=== PATIENT | female | born 1955 | race Caucasian/White ===

== ENCOUNTER 2024-06-12 19:00 | Emergency (ER) | payer OTHER ==
[~2024-06-12] VITALS: Ht 170.2 cm; Wt 68.0 kg
[2024-06-12 19:02] VITALS: TEMP 36.7; O2SAT 98
[2024-06-13 01:28] VITALS: BP 151/83; PULSE 73; RESP 16
[2024-06-13] MEDS: IBUPROFEN 600MG TABLET PO ONE (01:28)
== END 2024-06-13 02:26 | disposition home or self-care (01) ==
LOC: ER 19:00
DX: S80.11XA Contusion of right lower leg, initial encounter (principal); I10 Essential (primary) hypertension; Z88.0 Allergy status to penicillin; W18.30XA Fall on same level, unspecified, initial encounter; Y93.89 Activity, other specified; Y92.89 Other specified places as the place of occurrence of the external cause; Y99.8 Other external cause status
CPT/HCPCS: 73502; 73552; 99284